=== PATIENT | female | born 1955 | race Caucasian/White ===

== ENCOUNTER 2017-05-08 11:00 | Outpatient (CLI) | payer OTHER ==
--- NOTE | 2017-05-08 13:03 | XRAY Report ---
THREE VIEW LEFT SHOULDER: 05/08/2017 CLINICAL INDICATION: Fall, pain. FINDINGS: AP, oblique, and scapular Y views of the left shoulder demonstrate mild degenerative us es of the acromioclavicular joint. There is no evidence of acute fracture or dislocation. No radiopaq ue foreign body is seen in the soft tissues. IMPRESSION: MILD DEGENERATIVE CHANGES. NO EVIDENCE OF FRACTURE. JOB #: [id number] EXT JOB #:[id number]
== END 2017-05-08 11:01 | disposition home or self-care (01) ==
LOC: DI 11:00
PROVIDERS: ATTEND Family Medicine
DX: S43.402A Unspecified sprain of left shoulder joint, initial encounter (principal)

== ENCOUNTER 2022-12-21 13:45 | Outpatient (CLI) | payer OTHER ==
--- NOTE | 2022-12-21 15:39 | XRAY Report ---
PROCEDURE: Chest 2 View X-Ray INDICATIONS: UNSPECIFIED ASTHMA,UNCOMPLICATED TECHNIQUE: 2 views of the chest were acquired. COMPARISON: None. FINDINGS: Surgical changes and devices: None. Lungs and pleura: Bilateral interstitial prominence mild pulmonary fibrosis. No pleural effusions or pneumothorax. No focal consolidation. Mediastinum: Mediastinal contours are normal. Heart size is normal. Bones and chest wall: No suspicious bony abnormalities. Soft tissues appear unremarkable. IMPRESSION: 1. Bilateral interstitial prominence and mild pulmonary fibrosis suspicious for interstitial pneumoni a such as UIP. Reviewed by: Sánchez Maciel MD on 12/21/2022 3:38 PM PDT Approved by: Sánchez Maciel MD on 12/21/2022 3:38 PM PDT Station ID: [id number]
== END 2022-12-21 13:46 | disposition home or self-care (01) ==
LOC: DI 13:45
PROVIDERS: ATTEND Internal Medicine
DX: J45.909 Unspecified asthma, uncomplicated (principal)

== ENCOUNTER 2023-01-05 08:26 | Outpatient (CLI) | payer MEDICARE ==
--- NOTE | 2023-01-05 20:19 | CT Report ---
PROCEDURE: CHEST WO INDICATIONS: ABN XR TECHNIQUE: Noncontrast 1mm axial images were acquired from the pulmonary apices to the posterior costophrenic an gles. Axial 5 mm soft tissue kernel reconstructions were performed as well as 8 mm axial MIP and cor onal and sagittal 5 mm reformations. For radiation dose reduction, the following was used: automate d exposure control, adjustment of mA and/or kV according to patient size. COMPARISON: Chest radiograph dated 12/21/2029 FINDINGS: Image quality: Excellent. Lungs and pleura: No pleural effusions. No pneumothorax. No suspicious pulmonary nodules which requi re follow up. No focal consolidation. There is prominence of the right minor fissure with a few small intrafissural lymph nodes. There is mild atelectasis noted within the right middle lobe and left low er lobe. Subtle prominence of the interstitium within the posterior aspects of the lungs, left greate r than right. Represent atelectasis. Mediastinum: Heart size is normal. No pericardial effusions. No mediastinal adenopathy by size criter ia. No large vessel abnormality. Chest wall and lower neck: Thyroid is unremarkable. No axillary or supraclavicular adenopathy by size . Bones: No aggressive osseous abnormality. Upper Abdomen: Status post cholecystectomy. No suspicious or acute abnormality. IMPRESSION: There is mild atelectasis of the right middle lobe and left lower lobe. Prominence of the right minor fissure with subtle prominence of the interstitium may represent subtle interstitial edema versus early fibrotic lung disease. Recommend clinical correlation and consider f urther evaluation with high-resolution chest CT. Reviewed by: Narendra Lucia DO on 01/05/2023 7:17 PM PARISH Approved by: Narendra Lucia DO on 01/05/2023 7:17 PM PARISH Station ID: [id number]
== END 2023-01-05 08:27 | disposition home or self-care (01) ==
LOC: DI 08:26
PROVIDERS: ATTEND Internal Medicine
DX: J98.11 Atelectasis (principal)

== ENCOUNTER 2023-01-14 08:10 | Outpatient (CLI) | payer MEDICARE ==
--- NOTE | 2023-01-14 09:55 | DEXA Report ---
PROCEDURE: Dexa Spine and/or Hip INDICATIONS: POST MENOPAUSAL TECHNIQUE: Dual energy x-ray absorptiometry (DXA) was performed on a NPC III System. Regions measur ed are the AP Spine, femoral neck, and if needed forearm. COMPARISON: None. FINDINGS: Lumbar Spine: Bone Mineral Density 1.254 g/cm/cm,T score 0.6, normal. Left Femoral Neck: Bone Mineral Density 0.818 g/cm/cm, T score -1.6, osteopenia. Left Hip: Bone Mineral Density 0.873 g/cm/cm,T score -1.1, osteopenia. (T score greater or equal to -1.0: NORMAL) (T score from -1.1 to -2.4: OSTEOPENIA) (T score less than or equal to -2.5 to: OSTEOPOROSIS) Impression: Osteopenia. Patients with diagnosis of osteoporosis or osteopenia should have regular bone mineral density assess ment. For those eligible for Medicare, routine testing is allowed once every 2 years. Testing frequ ency can be increased for patients who have rapidly progressing disease or for those who are receivin g medical therapy to restore bone mass. Reviewed by: Kevin Arzola MD on 01/14/2023 9:54 AM PDT Approved by: Kevin Arzola MD on 01/14/2023 9:54 AM PDT Station ID: [id number]
== END 2023-01-14 08:11 | disposition home or self-care (01) ==
LOC: DI 08:10
PROVIDERS: ATTEND Internal Medicine
DX: M85.89 Other specified disorders of bone density and structure, multiple sites (principal)

== ENCOUNTER 2023-01-16 08:18 | Outpatient (CLI) | payer MEDICARE ==
--- NOTE | 2023-01-17 10:49 | Mammography Report ---
BILATERAL DIGITAL SCREENING MAMMOGRAM 3D/2D: 01/16/2023 CLINICAL: Family history of breast cancer. Baseline exam. Routine screening. No prior exams were available for comparison. There are scattered areas of fibroglandular density in both breasts (category b / 25%-50% glandular t issue). There is a 0.4 cm oval equal density focal asymmetry in the left breast at 1 o'clock posterior depth. No other significant masses, calcifications, or other findings are seen in either breast. IMPRESSION: INCOMPLETE: NEEDS ADDITIONAL IMAGING EVALUATION The 0.4 cm oval equal density focal asymmetry in the left breast resembles a cyst or a lymph node and is indeterminate. Additional views with possible ultrasound are recommended. Based on the Tyrer Cuzick model (a risk assessment model) the patients lifetime risk is 12.9% and he r 10 year risk is 6.9%. According to the ACR, ACS, and NCCN guidelines, an annual breast MRI exam ari ng with mammogram is recommended if the patients lifetime risk is 20% or greater. This exam was interpreted at Station ID: [id number]. NOTE: For mammograms, a report in lay terms will be sent to the patient. Approximately 15% of breast malignancies will not be visualized mammographically. In the management of a palpable breast mass, a negative mammogram must not discourage biopsy of a clinically suspicious lesion. Electronically Signed By: Angelito Mtz M.D. aty/:01/16/2023 13:32:17 ACR BI-RADS Category 0: Incomplete 3340F PARENCHYMAL PATTERN: (A) - The breast(s) demonstrate(s) scattered fibroglandular densities. BI-RADS CATEGORY: (0) - 0 Mammo and [place] [id number] Immediate follow-up LATERALITY: (L)
== END 2023-01-16 08:19 | disposition home or self-care (01) ==
LOC: DI.N 08:18
DX: Z12.31 Encounter for screening mammogram for malignant neoplasm of breast (principal); R92.8 Other abnormal and inconclusive findings on diagnostic imaging of breast; Z80.3 Family history of malignant neoplasm of breast

== ENCOUNTER 2023-02-11 09:53 | Outpatient (CLI) | payer MEDICARE ==
--- NOTE | 2023-02-12 09:30 | Ultrasound Report ---
LIMITED ULTRASOUND OF LEFT BREAST: 02/11/2023 CLINICAL: Patient returns today to evaluate a focal asymmetry in the left breast. Comparison is made to exams dated: 02/11/2023 mammogram and 01/16/2023 mammogram - [facility]. Color flow ultrasound of the left breast 1-2 o'clock region was performed. Mojica scale images of the real-time examination were reviewed. There is a benign 0.4 cm x 0.3 cm x 0.3 cm oval lymph node with a circumscribed margin in the left br east at 2 o'clock posterior depth 11 cm from the nipple. This oval lymph node displays fatty hilum. This correlates with mammography findings. IMPRESSION: BENIGN There is no sonographic evidence of malignancy. The 0.4 cm x 0.3 cm x 0.3 cm oval lymph node in the left breast is benign. Return to annual mammogram screening schedule is recommended. This exam was interpreted at Station ID: [id number]. Electronically Signed By: Kevin bush/sherman:02/11/2023 11:56:11 Ultrasound BI-RADS: 2 Benign BI-RADS CATEGORY: (2) - 2 Mammogram [id number] return to screening LATERALITY: (B)
--- NOTE | 2023-02-12 09:30 | Mammography Report ---
UNILATERAL LEFT DIGITAL DIAGNOSTIC MAMMOGRAM 3D/2D: 02/11/2023 CLINICAL: Patient returns today to evaluate a focal asymmetry in the left breast. Comparison is made to exam dated: 01/16/2023 mammogram - [facility]. There are scattered areas of fibroglandular density in the left breast (category b / 25%-50% glandula r tissue). There is a 0.4 cm oval equal density focal asymmetry with a circumscribed margin in the left breast a t 2 o'clock posterior depth. This is seen in additional views. No other significant masses or calcifications are seen in the breast. IMPRESSION: INCOMPLETE: NEEDS ADDITIONAL IMAGING EVALUATION The 0.4 cm oval equal density focal asymmetry in the left breast resembles a cyst or a lymph node and is indeterminate. An ultrasound is recommended. Based on the Tyrer Cuzick model (a risk assessment model) the patients lifetime risk is 15.1% and he r 10 year risk is 8.1%. According to the ACR, ACS, and NCCN guidelines, an annual breast MRI exam ari ng with mammogram is recommended if the patients lifetime risk is 20% or greater. This exam was interpreted at Station ID: [id number]. NOTE: For mammograms, a report in lay terms will be sent to the patient. Approximately 15% of breast malignancies will not be visualized mammographically. In the management of a palpable breast mass, a negative mammogram must not discourage biopsy of a clinically suspicious lesion. Electronically Signed By: Kevin bush/sherman:02/11/2023 11:54:51 ACR BI-RADS Category 0: Incomplete 3340F PARENCHYMAL PATTERN: (A) - The breast(s) demonstrate(s) scattered fibroglandular densities. BI-RADS CATEGORY: (0) - 0 Ultrasound [id number] Immediate follow-up LATERALITY: (L)
== END 2023-02-11 09:54 | disposition home or self-care (01) ==
LOC: DI 09:53
PROVIDERS: ATTEND Internal Medicine
DX: R92.8 Other abnormal and inconclusive findings on diagnostic imaging of breast (principal)

== ENCOUNTER 2024-04-09 14:32 | Outpatient (CLI) | payer MEDICARE ==
--- NOTE | 2024-04-10 09:07 | Mammography Report ---
BILATERAL DIGITAL SCREENING MAMMOGRAM 3D/2D: 04/09/2024 CLINICAL: Routine screening. Family history of breast cancer. Comparison is made to exams dated: 02/11/2023 mammogram and 01/16/2023 mammogram - [facility]. There are scattered areas of fibroglandular density in both breasts (category b / 25%-50% glandular t issue). No significant masses, calcifications, or other findings are seen in either breast. There has been no significant interval change. IMPRESSION: NEGATIVE There is no mammographic evidence of malignancy. A 1 year screening mammogram is recommended. Based on the Tyrer Cuzick model (a risk assessment model) the patient's lifetime risk is 14.4% and he r 10 year risk is 8.1%. According to the ACR, ACS, and NCCN guidelines, an annual breast MRI exam ari ng with mammogram is recommended if the patient's lifetime risk is 20% or greater. This exam was interpreted at Station ID: [id number]. NOTE: For mammograms, a report in lay terms will be sent to the patient. Approximately 15% of breast malignancies will not be visualized mammographically. In the management of a palpable breast mass, a negative mammogram must not discourage biopsy of a clinically suspicious lesion. Electronically Signed By: Kevin bush/sherman:04/10/2024 08:30:22 letter sent: No_Letter ACR BI-RADS Category 1: Negative 3341F PARENCHYMAL PATTERN: (A) - The breast(s) demonstrate(s) scattered fibroglandular densities. BI-RADS CATEGORY: (1) - 1 RECOMMENDATION: (ANNUAL) - Recommend routine annual screening mammography. [id number] 1 year screening LATERALITY: (B)
== END 2024-04-09 14:33 | disposition home or self-care (01) ==
LOC: DI 14:32
PROVIDERS: ATTEND Student in an Organized Health Care Education/Training Program
DX: Z12.31 Encounter for screening mammogram for malignant neoplasm of breast (principal); R92.323 Mammographic fibroglandular density, bilateral breasts